=== PATIENT | female | born 1990 | race African-American/Black ===

== ENCOUNTER 2020-06-22 08:51 | Emergency (ER) | payer OTHER, MEDICAID ==
[~2020-06-22] VITALS: Ht 154.9 cm; Wt 57.6 kg
[2020-06-22 09:00] VITALS: BP 118/75
[2020-06-22] MEDS ORDERED: FLEXERIL PO (09:26)
[2020-06-22] MEDS ORDERED: HYDROCODON-ACE1 EAC7 PO (09:26)
== END 2020-06-22 09:41 | disposition home or self-care (01) ==
LOC: M.ERS 08:51
DX: S13.4XXA Sprain of ligaments of cervical spine, initial encounter (principal); Z98.890 Other specified postprocedural states; V89.2XXA Person injured in unspecified motor-vehicle accident, traffic, initial encounter; Y93.89 Activity, other specified; Y92.89 Other specified places as the place of occurrence of the external cause; Y99.8 Other external cause status

== ENCOUNTER 2020-06-23 08:54 | Emergency (ER) | payer OTHER, MEDICAID ==
[~2020-06-23] VITALS: Ht 154.9 cm; Wt 57.6 kg
[~2020-06-23 08:54] MED LIST: FLEXERIL PO; HYDROCODON-ACE1 EAC7 PO
[2020-06-23 09:48] VITALS: BP 126/80
== END 2020-06-23 09:49 | disposition home or self-care (01) ==
LOC: M.ERS 08:54
DX: Z20.828 Contact with and (suspected) exposure to other viral communicable diseases (principal); Z98.890 Other specified postprocedural states

== ENCOUNTER 2020-07-13 17:33 | Emergency (ER) | payer OTHER, MEDICAID ==
[~2020-07-13] VITALS: Ht 154.9 cm; Wt 57.6 kg
[2020-07-13 18:06] LABS: URINE BILIRUBIN NEGATIVE (Negative); URINE BLOOD NEGATIVE (Negative); URINE CLARITY CLEAR; URINE COLOR YELLOW; URINE GLUCOSE-RANDOM NEGATIVE (Negative); URINE KETONES NEGATIVE (Negative); URINE LEUKOCYTES-REFLEX NEGATIVE (Negative); URINE NITRITE-REFLEX NEGATIVE (Negative); URINE PROTEIN NEGATIVE (Negative); URINE SPECIFIC GRAVITY >= 1.030 (1.005-1.030); URINE UROBILINOGEN 0.2 E.U./dl (0.2-1.0)
[2020-07-13] MEDS ORDERED: FLAGYL500 M1 PO (19:07)
[2020-07-13 19:16] VITALS: BP 116/81
== END 2020-07-13 19:18 ==
LOC: M.ERS 17:33
PROVIDERS: Nurse Practitioner Family
DX: N76.0 Acute vaginitis (principal); B96.89 Other specified bacterial agents as the cause of diseases classified elsewhere; Z98.890 Other specified postprocedural states

== ENCOUNTER 2020-10-29 21:52 | Emergency (ER) | payer OTHER, MEDICAID ==
[~2020-10-29] VITALS: Ht 154.9 cm; Wt 57.6 kg
[~2020-10-29 21:52] MED LIST changes: +FLAGYL500 M1 PO
[2020-10-29 22:58] LABS: URINE BILIRUBIN NEGATIVE (Negative); URINE BLOOD NEGATIVE (Negative); URINE CLARITY CLEAR; URINE COLOR YELLOW; URINE GLUCOSE-RANDOM NEGATIVE (Negative); URINE KETONES NEGATIVE (Negative); URINE LEUKOCYTES-REFLEX NEGATIVE (Negative); URINE NITRITE-REFLEX NEGATIVE (Negative); URINE PROTEIN NEGATIVE (Negative); URINE SPECIFIC GRAVITY 1.025 (1.005-1.030); URINE UROBILINOGEN 0.2 E.U./dl (0.2-1.0)
[2020-10-30] MEDS ORDERED: CLEOCIN100 MG VAG (00:30)
[2020-10-30 00:44] VITALS: BP 118/74
== END 2020-10-30 00:45 | disposition home or self-care (01) ==
LOC: M.ERS 21:52
PROVIDERS: Emergency Medicine
DX: N76.0 Acute vaginitis (principal); B96.89 Other specified bacterial agents as the cause of diseases classified elsewhere; Z98.890 Other specified postprocedural states